=== PATIENT | male | born 1960 ===

== ENCOUNTER → 2018-01-11 | Day surgery (SDC) | payer OTHER ==
[~2018-01-11] MED LIST: ALLEGRA ALLERGY60 MG; ASPIR 8181 MG; ECHINACEA; FLONASE ALLERG9.9 ML; NIACIN500 M1; VITAMINA
== END | disposition home or self-care (01) ==
LOC: ADM 01-06 12:45 → CIR.AMB 08:05
DX: M93.1 Kienbock's disease of adults (principal)